=== PATIENT | female | born 1950 | race Caucasian/White ===

== ENCOUNTER 2017-02-17 14:42 | Emergency (ER) | payer BC ==
[2017-02-17 15:13] VITALS: BP 139/78
--- NOTE | 2017-02-17 15:28 | UC ---
Upper Extremity HPI - HPI Summary HPI Summary: Patient has a pocket of swelling on the left elbow. does not remember hitting it. she is having side effects from ditropan and is wondering if this is one of them. - History of Current Complaint Chief Complaint: UCUpperExtremity Stated Complaint: LEFT ELBOW SKIN COMPLAINT Time Seen by Provider: 02/17/17 15:03 Hx Obtained From: Patient ?: No Onset/Duration: Sudden Onset, Lasting Days Severity Initially: Mild Severity Currently: Mild Location Of Pain: Is Discrete @ - left elbow Character: Unable to Describe Alleviating Factor(s): Nothing Associated Signs And Symptoms: Positive: Swelling - Allergies/Home Medications Allergies/Adverse Reactions: Allergies Allergy/AdvReac Type Severity Reaction Status Date / Time Sulfa Antibiotics Allergy pt doesn't Verified 02/17/17 15:01 remember Home Medications: Home Medications Calcium-Magnesium W/ Vitamin D [Calcium 600/Magnesium 300] 1 cap PO DAILY [History Confirmed 02/17/17] Oxybutynin Chloride [Oxybutynin Chloride ER] 10 mg PO DAILY 02/17/17 [History Confirmed 02/17/17] PMH/Surg Hx/FS Hx/Imm Hx Previously Healthy: Yes - Surgical History Surgical History: Yes Surgery Procedure, Year, and Place: hysterectomy. KNEE ARTHOSCOPY. BLADDER REPAIR. MELANOMA EXCISION WITH LYMPH NODE BX. - Family History Known Family History: Positive: Hypertension, Respiratory Disease - Social History Alcohol Use: None Substance Use Type: None Smoking Status (MU): Former Smoker Review of Systems Constitutional: Negative Skin: Negative Eyes: Blurred Vision ENT: Negative Respiratory: Negative Cardiovascular: Negative Gastrointestinal: Negative Genitourinary: Negative Motor: Negative Neurovascular: Negative Musculoskeletal: Edema Neurological: Negative Psychological: Negative All Other Systems Reviewed And Are Negative: Yes Physical Exam Triage Information Reviewed: Yes Appearance: Well-Appearing, Well-Nourished, Pain Distress Vital Signs: Initial Vital Signs Temp 98.6 F 02/17/17 15:05 Pulse 96 02/17/17 15:05 Resp 18 02/17/17 15:05 BP 139/78 02/17/17 15:05 Pulse Ox 96 02/17/17 15:05 Vital Signs Reviewed: Yes Eye Exam: Normal Eyes: Positive: Conjunctiva Clear ENT Exam: Normal ENT: Positive: Normal ENT inspection, Hearing grossly normal, Pharynx normal, TMs normal Dental Exam: Normal Neck exam: Normal Neck: Positive: Supple, Nontender, No Lymphadenopathy Respiratory Exam: Normal Respiratory: Positive: Chest non-tender, Lungs clear, Normal breath sounds Cardiovascular Exam: Normal Cardiovascular: Positive: RRR, No Murmur, Pulses Normal Abdominal Exam: Normal Abdomen Description: Positive: Nontender, No Organomegaly, Soft Bowel Sounds: Positive: Present Musculoskeletal Exam: Normal Musculoskeletal: Positive: Strength Intact, ROM Intact, No Edema Neurological Exam: Normal Neurological: Positive: Alert Psychological Exam: Normal Skin Exam: Normal Upper Extremity Course/Dx - Course Course Of Treatment: hx obtained, exam performed, she is being followed for the blurred vision which started after being on ditropan, left arm bursitis noted, bunny wrap applied. - Differential Dx/Diagnosis Differential Diagnosis/HQI/PQRI: Bursitis, Strain, Sprain Provider Diagnoses: left elbow bursitis Discharge - Discharge Plan Condition: Stable Disposition: HOME Patient Education Materials: Elbow Bursitis (ED) Additional Instructions: Apply bunny wrap daily until the fluid is reabsorbed. Follow up if your elbow becomes warm, tender, you develope a fever.
== END 2017-02-17 15:37 | disposition home or self-care (01) ==
LOC: UCCORT 14:42
DX: M70.32 Other bursitis of elbow, left elbow (principal); Y93.9 Activity, unspecified; Z88.2 Allergy status to sulfonamides; Z87.891 Personal history of nicotine dependence
CPT/HCPCS: 99211; G0463

== ENCOUNTER 2017-12-23 07:34 | Emergency (ER) | payer BC ==
[2017-12-23 07:46] VITALS: BP 126/71
--- NOTE | 2017-12-23 08:32 | UC ---
Respiratory Complaint HPI - HPI Summary HPI Summary: Cough and congestion for about 4-5 days. No fever. She has had some pain with cough. She denies prior lung disease. She is a former smoker. - History of Current Complaint Chief Complaint: UCRespiratory Stated Complaint: UPPER RESPIRATORY,HEADACHE Time Seen by Provider: 12/23/17 08:14 Hx Obtained From: Patient Hx Last Menstrual Period: n/a ?: No Onset/Duration: Gradual Onset, Lasting Days Timing: Constant Severity Initially: Moderate Severity Currently: Moderate Pain Intensity: 0 Character: Cough: Nonproductive Aggravating Factors: Deep Breaths, Recumbent Position Alleviating Factors: Upright Position, Spontaneous Resolution Associated Signs And Symptoms: Positive: URI, Nasal Congestion. Negative: Fever , Chills, Hemoptysis, Dizziness, Calf Pain, Calf Swelling - Allergies/Home Medications Allergies/Adverse Reactions: Allergies Allergy/AdvReac Type Severity Reaction Status Date / Time MS Sulfa Antibiotics Allergy pt doesn't Verified 12/23/17 07:43 [Sulfa Antibiotics] remember PMH/Surg Hx/FS Hx/Imm Hx Previously Healthy: No - Surgical History Surgical History: Yes Surgery Procedure, Year, and Place: hysterectomy. KNEE ARTHOSCOPY. BLADDER REPAIR. MELANOMA EXCISION WITH LYMPH NODE BX. - Family History Known Family History: Positive: Hypertension, Respiratory Disease - Social History Alcohol Use: None Substance Use Type: None Smoking Status (MU): Former Smoker Review of Systems ENT: Sinus Congestion Respiratory: Cough All Other Systems Reviewed And Are Negative: Yes Physical Exam Triage Information Reviewed: Yes Appearance: Well-Appearing, No Pain Distress, Well-Nourished Vital Signs: Initial Vital Signs Temp 98.6 F 12/23/17 07:41 Pulse 102 12/23/17 07:41 Resp 18 12/23/17 07:41 BP 126/71 12/23/17 07:41 Pulse Ox 96 12/23/17 07:41 Vital Signs Reviewed: Yes Eyes: Positive: Conjunctiva Clear ENT: Positive: Pharynx normal, Nasal congestion, TMs normal, Uvula midline. Negative: TM bulging, TM dull, TM red, Tonsillar swelling, Tonsillar exudate, Trismus Neck: Positive: Supple, Nontender, No Lymphadenopathy Respiratory: Positive: Lungs clear, Normal breath sounds, No respiratory distress, No accessory muscle use. Negative: Respiratory distress, Decreased breath sounds, Accessory muscle use, Crackles, Rhonchi, Stridor, Wheezing Cardiovascular: Positive: RRR, No Murmur, Pulses Normal Abdomen Description: Positive: No Organomegaly, Soft. Negative: Distended, Guarding Musculoskeletal: Positive: ROM Intact, No Edema Neurological: Positive: Alert, Muscle Tone Normal. Negative: Fatigued Psychological: Positive: Age Appropriate Behavior Skin: Negative: rashes UC Diagnostic Evaluation - Laboratory O2 Sat by Pulse Oximetry: 96 Respiratory Course/Dx - Course Course Of Treatment: Chest cold. No signs of sinus infection or pneumonia. She is non toxic. Supportive care. Z pack if not much improved by day 9-10./ - Differential Dx/Diagnosis Provider Diagnoses: uri Discharge - Discharge Plan Condition: Good Disposition: HOME Prescriptions: Acetaminop/Codeine 30 MG TAB* [Tylenol/Codeine 30 MG TAB*] 1 tab PO BEDTIME PRN #10 tab MDD 1 PRN Reason: Cough Azithromyxin MICHELLE (NF) [Z-Michelle (Zithromax) 250 mg tabs #6] 2 tab PO .TODAY, THEN 1 DAILY #6 tab Benzonatate CAP* [Tessalon 100 MG CAP*] 100 mg PO TID PRN #20 cap PRN Reason: Cough Patient Education Materials: Upper Respiratory Infection (ED) Referrals: Adebayo Torres MD [Primary Care Provider] - Additional Instructions: Tessalon perles, decongestants during the day and tyelnol with codeine at night as needed. Z pack if not any better by day 9-10 .
== END 2017-12-23 08:31 | disposition home or self-care (01) ==
LOC: UCCORT 07:34
DX: J06.9 Acute upper respiratory infection, unspecified (principal); Z90.710 Acquired absence of both cervix and uterus; Z88.2 Allergy status to sulfonamides; Z87.891 Personal history of nicotine dependence
CPT/HCPCS: 99212; G0463